=== PATIENT | male | born 1950 | race Caucasian/White ===

== ENCOUNTER 2023-12-12 13:20 | Emergency (ER) | payer MEDICARE ==
[~2023-12-12] VITALS: Ht 180.3 cm; Wt 141.5 kg
[~2023-12-12 13:20] MED LIST: ASPIRIN ADULT L81 M1 PO; GLUCOPHAGE1000 MG PO; GLYBURIDE5 MG PO; JANUMET 1000 MG1 TA1 PO; JANUVIA100 MG PO; JANUVIA50 MG PO; NASAL ALLERGY S13 ML NAS; VALSARTAN-HCTZ1 EACH PO; VICTOZA6 MG/ML SC; [UNRECOGNIZED DRUG - OTHER] PO
[2023-12-12 14:05] LABS: BASO % 0.4 % (0.0-1.0); EOS # 0.3 10*3/uL (0.0-0.4); HEMATOCRIT 49.5 % (42.0-52.0); LYMPH # 0.8 10*3/uL (1.3-4.4); LYMPH % 11.6 % (27.0-41.0); MEAN CELL VOLUME 87.8 fl (80.0-94.0); MEAN CORPUSCULAR HGB 29.3 pg (27.0-31.0); MEAN CORPUSCULAR HGB CONC 33.3 g/dl (33.0-37.0); MEAN PLATELET VOLUME 9.4 fl (9.6-12.3); MONO # 0.3 10*3/uL (0.1-1.0); NEUT # 5.4 10*3/uL (2.3-7.9); NEUT % 78.6 % (47.0-73.0); PLATELET COUNT AUTOMATED 227 10*3/uL (130-400); RED BLOOD COUNT 5.64 10*6/uL (4.50-5.90); RED CELL DISTRI WIDTH 12.3 % (0-14.5); WHITE BLOOD COUNT 6.8 10*3/uL (4.8-10.8)
[2023-12-12 15:21] LABS: BUN 15 mg/dl (9-23); CHLORIDE 103 mmol/L (98-107); POTASSIUM 4.4 mmol/L (3.4-5.1)
[2023-12-12] MEDS ORDERED: MEDROL DOSEPAK4 MG PO (15:45)
[2023-12-12] MEDS ORDERED: INSULIN REGULAR, HUMAN 1 UNIT/0.01 ML SC ONE (15:45)
== END 2023-12-12 16:32 | disposition home or self-care (01) ==
LOC: ED 13:20
PROVIDERS: Physician Assistant Medical
DX: J20.9 Acute bronchitis, unspecified (principal); E11.65 Type 2 diabetes mellitus with hyperglycemia; R10.13 Epigastric pain; Z88.8 Allergy status to other drugs, medicaments and biological substances; Z79.899 Other long term (current) drug therapy; Z79.82 Long term (current) use of aspirin; Z79.84 Long term (current) use of oral hypoglycemic drugs; Z98.890 Other specified postprocedural states; Z90.49 Acquired absence of other specified parts of digestive tract